=== PATIENT | male | born 1995 | race African-American/Black ===

== ENCOUNTER 2024-08-04 20:36 | Emergency (ER) | payer SELFPAY ==
[2024-08-04 20:37] VITALS: BP 177/96; PULSE 65; RESP 14; TEMP 36.7; O2SAT 99; BMI 24.3
--- NOTE | 2024-08-04 20:56 | EX.ED.DYSGE1 ---
HPI <VI Suarez - Last Filed: 08/04/24 21:04> History of Present Illness Chief Complaint: Dental Narrative Narrative: Patient is a 28-year-old male with no significant ankle history presents to the emergency department for drainage, pain to the right lower jaw. Patient does have known fractured teeth to the right lower molars. Patient states he has been having intermittent drainage from an area. He does have an area of drainage. He states that he currently has a dentist appointment on August 07, 2023 however he is here for antibiotics. Denies any other injury. PFSH <VI Suarez - Last Filed: 08/04/24 21:04> [facility] Home Medications ?Medication ?Instructions ?Recorded ?Last Taken ?Type clindamycin HCl 150 mg capsule 300 mg (2 x 150 mg) PO 4X/DAY #80 08/04/24 Unknown Rx CAPSULES clindamycin HCl 150 mg capsule 300 mg (2 x 150 mg) PO 4X/DAY 10 08/04/24 Unknown Rx days #80 CAPSULES Allergy/AdvReac Type Severity Reaction Status Date / Time No Known Allergies Allergy Verified 08/04/24 20:36 Surgical History (Updated 08/04/24 @ 21:03 by Lydia Daniel) S/P ACL reconstruction Social History Smoking Status: Current every day smoker tobacco type: cigarettes and e-cigarettes ROS <VI Suarez - Last Filed: 08/04/24 21:04> ROS ED ROS Narrative Constitutional: Negative for fever, chills, weight loss, weakness Eyes: Negative for vision loss, vision change, double vision ENT: Negative for any sore throat, ear pain, congestion. Positive for mouth pain, drainage of the right lower jaw Cardiovascular: Negative for any chest pain, tightness, palpitations Respiratory: Negative for any cough, sputum production, hemoptysis, dyspnea, dyspnea on exertion, orthopnea Gastrointestinal: Negative for any abdominal pain, nausea, vomiting, diarrhea, constipation, blood in stool, blood in vomit : Negative for any urinary frequency, dysuria, retention, blood in urine Muscle skeletal: Negative for any neck pain, back pain Neurological: Negative for any headache, syncope, dizziness Skin: Negative for any rashes, itching, abrasions, lacerations Psychiatric: Negative for any depression, anxiety, stress, suicidal ideation, homicidal ideation Hematologic: Negative for any excessive bruising, easy bleeding EXAM <VI Suarez - Last Filed: 08/04/24 21:04> Physical Exam Narrative Exam Narrative: Vital signs reviewed. HEET: Head normocephalic atraumatic, TMs clear bilaterally. Posterior pharynx is clear, moist mucous membranes. Nares clear bilaterally. Patient does have a small area to the right lower jaw on the lateral aspect of the gumline, this is just below the premolar. There is a small area with some drainage. I was able to expel slightly more however he states he got most of it out. No deep tissue infection, no trismus. Negative for any signs of Ludwigs angina Neck: Supple with no lymphadenopathy or tenderness. No signs of meningismus. Cardiac: Regular rate and rhythm no murmurs gallops or rubs, equal peripheral pulses bilaterally. Respiratory: Lungs clear to auscultation bilaterally. No chest tenderness. Abdomen: Soft, nontender, nondistended. No abdominal bruit or pulsatile masses. No hepatosplenomegaly Extremities: No peripheral edema, no signs of gross trauma or deformity. Active full range of motion of all extremities. Neuro: Cranial nerves II through XII intact, no focal neurological deficits. Skin: Clean dry and intact with no rash, purpura, petechiae, vesicles or pustules. Backs/flank: No CVA tenderness, no midline spinal tenderness, no deformity. Psych: Normal mood and affect. No SI, HI or acute psychosis. Const Vital Signs: 08/04/24 20:37 Temperature 98.1 F Temperature Source Temporal Pulse Rate 65 Respiratory Rate 14 Blood Pressure 177/96 H Blood Pressure Mean 123 Pulse Ox 99 Oxygen Delivery Method Room Air <Dr. Cash Bennett DO - Last Filed: 08/04/24 21:02> Physical Exam Const Vital Signs: 08/04/24 20:37 Temperature 98.1 F Temperature Source Temporal Pulse Rate 65 Respiratory Rate 14 Blood Pressure 177/96 H Blood Pressure Mean 123 Pulse Ox 99 Oxygen Delivery Method Room Air MDM <VI Suarez - Last Filed: 08/04/24 21:04> [facility] Treatment and Re-Evaluation :: Differential diagnosis includes however is not limited to: Ludwigs angina, dental abscess, fractured tooth, irreversible pulpitis Patient appears generally well, vital signs are stable, patient is nontoxic-appearing. Presenting to the [facility] for drainage of the right lower jaw, right lateral gumline. At this time, there is no red flag signs. There is no trismus. No evidence of any ludwigs angina. Patient was placed on clindamycin 4 to 50 mg 3 times a day. He will follow-up closely with his dentist. Happy the plan of care, all questions answered, stable for discharge. <Dr. Cash Bennett, DO - Last Filed: 08/04/24 21:02> [facility] Narrative Medical decision making narrative: I have personally performed a face to face assessment of the patient and have reviewed the KRYSTA Note. I performed a substantive portion of the visit including all aspects of the following. My cespedes findings include: History is [patient presents to the emergency department with concern for dental infection. States that he had some facial swelling that is been going on for about a week right lower. States he has some broken and carried molars and has appointment scheduled with a dentist coming up in a week. He has noticed along the gingiva of his caries and broken molar some soft tissue swelling and has been having some drainage from that area. Denies fever although he said some chills. Patient states that he started to google on the Internet and became concerned about potentially worsening infection.] Exam is [HEENT-PERRLA, EOMI. Cranial nerves II through XII grossly intact. TMs clear. Mucous membranes moist. No adenopathy. Patient with a broken and carried right lower molar tooth #30. Adjacent gingiva there is a small papule without any significant fluctuance currently. There are some gingival erythema. Suspect there was an abscess here that has been draining for Cardiovascular-regular rate and rhythm without murmur or ectopy Lungs-clear to auscultation, chest wall stable without crepitus or subcu emphysema Abdomen-normoactive bowel sounds, soft, nontender, no rebound or rigidity, no peritoneal signs. Extremities-intact ?4, normal range of motion, normal pulses, atraumatic] Medical Decison Making [patient presents with dental pain and dental abscess. Clinically looks well. Will start on clindamycin. Advised to keep his appointment that he has coming up with his dentist. He will likely require a dental extraction.] Other additions or changes: [None] Discharge Plan Triage Chief Complaint: Dental ED Midlevel Provider: Los Johnson ED Provider: Cash Bennett Dx/Rx/DC Orders Clinical Impression: Dental abscess Instructions: Dental Abscess, ED Abscess Antibiotic Treatment Only Prescriptions: New clindamycin HCl 150 mg capsule 300 mg PO 4X/DAY Qty: 80 0RF clindamycin HCl 150 mg capsule 300 mg PO 4X/DAY 10 Days Qty: 80 0RF Primary Care Provider: Care Physician,No Primary Activity Restrictions/Additional Instructions: Take antibiotics until finished. Print Language: Peruvian Disposition Disposition: Home, Self Care
[2024-08-04 21:05] VITALS: BP 177/96; PULSE 65; RESP 14; TEMP 36.7; O2SAT 99
[2024-08-04] MEDS: Clindamycin HCl 150 MG Capsule 450 MG PO (21:11)
== END 2024-08-04 21:13 | disposition home or self-care (01) ==
LOC: ED 21:03
PROVIDERS: Emergency Provider Emergency Medicine; Visit Provider Emergency Medicine
DX: K04.7 Periapical abscess without sinus (principal); F17.210 Nicotine dependence, cigarettes, uncomplicated; F17.290 Nicotine dependence, other tobacco product, uncomplicated
CPT/HCPCS: 99282

== ENCOUNTER 2024-08-09 13:06 | Emergency (ER) | payer SELFPAY ==
[2024-08-09 13:07] VITALS: BP 148/94; PULSE 100; RESP 18; TEMP 35.5; O2SAT 99; BMI 23.7
--- NOTE | 2024-08-09 15:32 | EKG12_ITS ---
Test Reason : cp Blood Pressure : */* mmHG Vent. Rate : 65 BPM Atrial Rate : 65 BPM P-R Int : 162 ms QRS Dur : 104 ms QT Int : 384 ms P-R-T Axes : 80 71 70 degrees QTcB Int : 399 ms Normal sinus rhythm with sinus arrhythmia Nonspecific T wave abnormality Abnormal ECG No previous ECGs available Confirmed by Wilton Mckeon ([id number]), editorial manager THUY BARDALES ([id number]) on 08/13/2024 10:44:18 AM Referred By: Confirmed By: Wilton Mckeon
--- NOTE | 2024-08-09 15:52 | RAD_ITS ---
PROCEDURE: CHEST 1 VIEW (PORTABLE) REASON FOR EXAM: Chest pain. Shortness of breath. Headache. TECHNIQUE: Frontal view of the chest. COMPARISON: Yesterday none. FINDINGS: The heart size is normal. The lungs appear clear of acute disease. No pleural effusion or pneumothorax is noted. No acute osseous process is seen. RAD/Chest 1 View (Portable) IMPRESSION: NEGATIVE CHEST. Reading Location: [address]
[2024-08-09 16:11] LABS: Absolute Lymphocyte Count 1.54 X10^3/uL (0.83-4.51); Absolute Neutrophil Count 1.8 X10^3/uL (2.0-7.7); Basophil# 0.04 X10^3/uL; Basophil% 0.9 % (0-1); Eosinophil# 0.04 X10^3/uL; Eosinophils% 0.9 % (0-5); Hematocrit 53.2 % (40-54); Hemoglobin 17.5 g/dL (13.0-16.5); Lymphocyte # 1.54 X10^3/ul (0.83-4.51); Lymphocyte % 35.2 % (19-41); Mean Corp Hgb Conc 32.9 g/dL (32-36); Mean Corpuscular Volume 88.1 fL (80-94); Mean Platelet Vol. 9.1 fl (6.2-12.0); Monocyte# 0.93 X10^3/uL; Monocyte% 21.2 % (0-10); NRBC Flagged by Analyzer 0 % (0-5); Neutrophil # 1.82 X10^3/uL (2.7-7.7); Neutrophil % 41.6 % (47-70); Platelet Count 234 K/mm3 (150-450); RBC Distribution Width CV 11.9 % (11.6-14.6); Red Blood Count 6.04 M/mm3 (4.6-6.2); White Blood Count 4.4 K/mm3 (4.4-11.0)
[2024-08-09 16:27] LABS: Anion Gap 6 (5-15); BUN 14 mg/dL (7-18); Calcium,Total 9.6 mg/dL (8.5-10.1); Chloride 102 mmol/L (98-107); EST Glomerular Filtration Rate 93 mL/min (>60); Est Glom Filt Rate - Afr Amer 113 mL/min (>60); Estimated Creatinine Clearance 130.27 ml/min; Glucose 82 mg/dL (74-106); Potassium 4.2 mmol/L (3.5-5.1); Sodium Level 136 mmol/L (136-145); Troponin-I HS (w/2H Reflex) < 3 pg/mL (3.0-78.0)
[2024-08-09] MEDS: Aspirin 81 MG TAB.CHEW 324 MG PO (17:01)
[2024-08-09 17:07] VITALS: BP 145/78; PULSE 90; RESP 17; O2SAT 98
--- NOTE | 2024-08-09 17:54 | EDS_ITS ---
HPI History of Present Illness Chief Complaint: Chest Pain Informant: patient Onset/Context/Timing Onset: Weeks Activity at onset: gradual Timing: Intermittent Quality: Positive for Sharp Location: Substernal Current Severity: Gone Maximum Severity: Mild Worsened By: Nothing Relieved By: Nothing Associated Symptoms: Negative for Nausea, Vomiting, Diaphoresis, Dyspnea, Cough, Fever, Lightheadedness, Acid Reflux or Palpitations Narrative Narrative: 28-year-old male no significant past medical history. Patient is from [place] he has been up for the last month and a half helping take care of his mother. He denies any significant past medical history. States had some chest discomfort that he describes as stinging for the last week. It comes and goes. Does not feel like reflux. He is never had any cardiac history. He is never had a DVT or PE. He denies any leg pain or swelling. No recent travel, surgery or hospitalization. No hemoptysis. No shortness of breath. No fever chills or cough. Prior Similar Symptoms: No Recent Illness/Hospitalization: No PE Risk Factors: Negative for Recent Travel/Surgery, Recent Immobilization, Prior DVT or PE, Cancer or OCP + Smoking + >/=35 TAD Risk Factors: Positive for Marfan's Syndrome PFSH PFSH no medical history Home Medications ?Medication ?Instructions ?Recorded ?Last Taken ?Type clindamycin HCl 150 mg capsule 300 mg (2 x 150 mg) PO 4X/DAY #80 08/04/24 Unknown Rx CAPSULES clindamycin HCl 150 mg capsule 300 mg (2 x 150 mg) PO 4X/DAY 10 08/04/24 Unknown Rx days #80 CAPSULES Allergy/AdvReac Type Severity Reaction Status Date / Time No Known Allergies Allergy Verified 08/09/24 13:07 no significant family history Surgical History S/P ACL reconstruction Social History Smoking Status: Current every day smoker tobacco type: cigarettes and e- cigarettes ROS ROS ED ROS Narrative Atypical nonexertional chest pain. Constitutional Constitutional ED: Denies chills or fever(s) Eyes Eyes: Reports none ENT ENT ED: Denies ear pain Cardiovascular Cardiovascular: Reports as per HPI and chest pain; Denies palpitations or racing heartbeat Respiratory/Chest Respiratory/Chest: Denies cough, dyspnea or dyspnea on exertion Gastrointestinal Gastrointestinal: Denies abdominal pain Genitourinary Genitourinary ED: Denies dysuria or hematuria Musculoskeletal Musculoskeletal: Denies arthralgias or back pain Integumentary Denies abscess Neurologic Neurologic: Denies headache(s) Psychiatric Psychiatric: Denies anxiety Endocrine Endocrinology: Denies cold intolerance Hematologic/Lymphatic Hematologic/Lymphatic: Denies easy bleeding, easy bruising or lymphadenopathy Allergic/Immunologic Allergic/Immunologic ED: Denies mouth swelling, tongue swelling or urticaria EXAM Physical Exam Narrative Exam Narrative: Well-appearing 28-year-old male. Vital signs are stable afebrile. No acute distress. No one is present in the room. H EENT exam unremarkable. Mytrex members. Neck nontender no JVD. No lymphadenopathy. Lungs clear to auscultation bilateral. Heart regular rate and rhythm rate about 90 no murmur. Chest wall and ribs are completely nontender. There is no ecchymosis or bruising. No crepitance or subcu air. Abdomen soft nontender. Back nontender. Moving all 4 extremities. Calves are nontender without edema or cords. Normal strength and range of motion. Equal symmetrical radial pulses. He is awake and alert no focal motor deficits. Benign exam. Const Vital Signs: 08/09/24 13:07 08/09/24 17:07 08/09/24 17:08 Temperature 95.9 F L Temperature Source Temporal Pulse Rate 100 90 Respiratory Rate 18 17 Respiratory Effort Normal Non-Labored Blood Pressure 148/94 H 145/78 H Blood Pressure Mean 112 100 Pulse Ox 99 98 Oxygen Delivery Method Room Air Room Air 08/09/24 17:08 Temperature Temperature Source Pulse Rate Respiratory Rate Respiratory Effort Blood Pressure Blood Pressure Mean Pulse Ox Oxygen Delivery Method Room Air Positive well nourished and well developed; Negative for obese, cachectic, contractures or unkempt General Appearance ED: well developed and NAD; Negative for unkempt, cachectic, contractures or pallor Nutritional Appearance: Negative for cachectic or obese HEENT Reports moist mucous membranes normocephalic and atraumatic; Negative for trauma or tenderness Eyes PERRL and EOMs intact bilaterally General Eye ED: Negative for pale conjunctiva or scleral icterus Neck no lymphadenopathy, supple and no JVD General: Negative for tenderness Chest Wall inspection of chest normal and palpation of chest normal Chest: Negative for tenderness Resp normal respiratory effort and clear to auscultation bilaterally Effort and Inspection: Negative for respiratory distress Auscultation: Negative for rales, rhonchi, wheezes or diminished lung sounds Cardio regular rate, regular rhythm, S1 normal heart sound, S2 normal heart sound and no murmurs Rate: Negative for bradycardia or tachycardic Rhythm: Negative for abnormal rhythm Peripheral Pulses: pulses 2+ throughout GI normal to inspection, nondistended, normoactive bowel sounds, soft to palpation, non-tender, non-distended and no masses Back/Spine no CVA tenderness and no thoracic nor lumbar tenderness General Back: Negative for CVA tenderness Cervical Spine: Negative for cervical spine tenderness Extremity normal to inspection General Extremety ED: Negative for edema, pulses abnormal or tenderness General Extremity: Negative for edema or pulses abnormal Neuro oriented x3 and CN's II-XII intact bilaterally Sensorium / Orientation: awake, alert, oriented to person, oriented to place and oriented to time; Negative for confused, lethargic or stuporous Motor Exam: strength 5/5 throughout Psych mental status grossly normal Appearance: Negative for unkempt Mood & Affect: Negative for depressed, anxious or tearful Skin no rashes or lesions noted and no wounds General Skin Exam: Negative for jaundice or pallor Rashes: No rashes noted Trauma: Negative for abrasion, laceration or puncture MDM MDM MDM Narrative Medical decision making narrative: 28-year-old male atypical nonreproducible chest pain. No cardiac history. Normal exam. No significant DVT or PE risk factors nor family history. Cardiac workup is normal. He is doing well at 5:50 PM. He will be discharged home with outpatient follow-up as needed. Patient I discussed all his test results. History & Record Review Discussion w/independent historian: Patient Lab Data Attestation: I reviewed the patient's lab results. Lab results narrative: CBC unremarkable. White count of 4 H&H is 17 and 53. Chemistry is normal. Glucose 82. Troponin less than 3. Chest x-ray normal. No pneumothorax. Normal cardiac silhouette. Labs: Laboratory Results - last 24 hr 08/09/24 15:47 WBC 4.4 RBC 6.04 Hgb 17.5 H Hct 53.2 MCV 88.1 MCH 29.0 MCHC 32.9 RDW Std Deviation 38.0 RDW Coeff of Gerardo 11.9 Plt Count 234 MPV 9.1 Immature Gran % (Auto) 0.200 Neut % (Auto) 41.6 L Lymph % (Auto) 35.2 [place] % (Auto) 21.2 H Eos % (Auto) 0.9 Baso % (Auto) 0.9 Absolute Neuts (auto) 1.8 L Absolute Lymphs (auto) 1.54 Nucleated RBC % 0 Sodium 136 Potassium 4.2 Chloride 102 Carbon Dioxide 28.0 Anion Gap 6 BUN 14 Creatinine 1.00 Estim Creat Clear Calc 130.27 Est GFR (MDRD) Af Amer 113 Est GFR (MDRD) Non-Af 93 BUN/Creatinine Ratio 14.0 Glucose 82 Calcium 9.6 Troponin I High Sens < 3 L Radiography Chest X-Ray - ED: 1 View, Read by ED Physician, Read by Radiologist, Heart, Lungs, Mediastinum, Bony Structures and No Acute Disease Diagnostic Testing: Clinical Impression(s) from Imaging Studies Chest X-Ray 08/09/24 15:52 IMPRESSION: NEGATIVE CHEST. Reading Location: [address] Chest x-ray, portable, single view interpreted by by myself and radiologist shows no acute abnormality. Rhythm Strip Rhythm Strip: Sinus Rhythm Rate: 65 Ectopy: None EKG Initial EKG: Attestation: I personally reviewed and interpreted this EKG as follows: Interpretation: Sinus Rhythm and No Acute Injury Pattern Comments: Normal sinus rhythm rate of 65 no acute signs of VA or ischemia. No S1Q3T3. No signs of pericarditis. Discharge Plan Triage Chief Complaint: Chest Pain ED Provider: Tavo Burnett Dx/Rx/DC Orders Clinical Impression: Chest pain Instructions: ED Chest Pain, Uncertain Cause Prescriptions: No Action clindamycin HCl 150 mg capsule 300 mg PO 4X/DAY Qty: 80 0RF clindamycin HCl 150 mg capsule 300 mg PO 4X/DAY 10 Days Qty: 80 0RF Primary Care Provider: Care Physician,No Primary Referrals: Domo Zuniga MD [Med Staff - Home Health Care Physician] - As Needed Care Physician,No Primary [Primary Care Provider] - Activity Restrictions/Additional Instructions: Your labs and chest x-ray and EKG all look good. Uncertain what is causing the discomfort. Motrin and Tylenol for any pain. Follow-up with local primary care physician if not improving or return if feeling a lot worse but nothing that I can find today. Exam is normal also. Print Language: Scottish Disposition Disposition: Home, Self Care
[2024-08-09 18:07] LABS: Reflex Troponin-HS? (from REC) Y
[2024-08-09 18:10] VITALS: BP 141/77; PULSE 64; RESP 10; TEMP 36.6; O2SAT 68
== END 2024-08-09 18:11 | disposition home or self-care (01) ==
LOC: ED 18:04
PROVIDERS: Emergency Provider Emergency Medicine; Visit Provider Emergency Medicine
DX: R07.9 Chest pain, unspecified (principal); Q87.40 Marfan syndrome, unspecified; F17.210 Nicotine dependence, cigarettes, uncomplicated; F17.290 Nicotine dependence, other tobacco product, uncomplicated
CPT/HCPCS: 71045; 80048; 84484; 85025; 93005; 99283; A4216